=== PATIENT | male | born 1940 ===

== ENCOUNTER 2019-12-20 13:54 | Outpatient (RCR) | payer MEDICARE, MEDICAID | END 2020-01-07 | disposition home or self-care (01) | LOC: WCC 13:54 | DX: M86.172 Other acute osteomyelitis, left ankle and foot (principal); I70.245 Atherosclerosis of native arteries of left leg with ulceration of other part of foot; L97.524 Non-pressure chronic ulcer of other part of left foot with necrosis of bone; I70.262 Atherosclerosis of native arteries of extremities with gangrene, left leg; Z91.19 Patient's noncompliance with other medical treatment and regimen; L03.116 Cellulitis of left lower limb; E11.9 Type 2 diabetes mellitus without complications; Z86.73 Personal history of transient ischemic attack (TIA), and cerebral infarction without residual deficits; I51.9 Heart disease, unspecified | CPT/HCPCS: G0463 ==